=== PATIENT | female | born 1955 | race Caucasian/White ===

== ENCOUNTER 2017-05-08 21:48 | Outpatient (CLI) | payer MEDICARE, MEDICAID ==
--- NOTE | 2017-05-08 23:45 | Ultrasound Preliminary Report ---
Exam: US Duplex Ext Veins Left IMPRESSION: 1. Posterior tibial and peroneal veins not well seen. 2. No evidence for deep venous thrombosis. RADIA The call report notification system was initiated by Dr. Jackie Elena at 23:05 hrs on 05/08/17. The above findings were discussed with David by Dr. Jackie Elena at 23:44 hrs on 05/08/17. SITE ID: [id number]
--- NOTE | 2017-05-09 00:15 | Ultrasound Report ---
EXAM: LEFT LOWER EXTREMITY VENOUS ULTRASOUND EXAM DATE: 05/08/2017 10:33 PM. CLINICAL HISTORY: Leg joint pain. COMPARISON: None. TECHNIQUE: Real-time sonographic vascular imaging was performed by the web pressman through the lower extremity utilizing both color-flow and Doppler spectral analysis. Multiple independent sales representative static don ges were saved for review. FINDINGS: Common Femoral Vein (CFV): Normal. CFV-GSV Junction: Normal. Profunda Femoral Vein (PFV): Normal. Femoral Vein (FV) Prox: Normal. Femoral Vein (FV) Mid: Normal. Femoral Vein (FV) Dist: Normal. Popliteal Vein: Normal. Posterior Tibial Veins: Not well-seen. Peroneal Veins: Not well-seen. Contralateral Right CFV: Normal. Other: None. IMPRESSION: 1. Posterior tibial and peroneal veins not well-seen. 2. No evidence for deep venous thrombosis. RADIA The call report notification system was initiated by Dr. Jackie Elena at 23:05 hrs on 05/08/17. The above findings were discussed with David by Dr. Jackie Elena at 23:44 hrs on 05/08/17. Referring Provider Line: [phone] SITE ID: [id number]
== END 2017-05-08 21:49 | disposition home or self-care (01) ==
LOC: DI 21:48
PROVIDERS: ATTEND Physician Assistant
DX: M25.50 Pain in unspecified joint (principal)

== ENCOUNTER 2017-06-06 15:56 | Outpatient (CLI) | payer MEDICARE, MEDICAID ==
--- NOTE | 2017-06-07 12:24 | XRAY Report ---
THREE-VIEW LEFT KNEE: 06/06/2017 CLINICAL INDICATION: Pain. FINDINGS: AP, lateral, sunrise views of the left knee demonstrate stable appearance of knee replacem ent from postoperative films of 04/08/2013. There is no evidence of acute fracture or hardware compl ication. No effusion is present. IMPRESSION: STABLE APPEARANCE OF LEFT KNEE REPLACEMENT. JOB #: [id number] EXT JOB #:[id number]
== END 2017-06-06 15:57 | disposition home or self-care (01) ==
LOC: DI.N 15:56
PROVIDERS: ATTEND Family Medicine
DX: M25.562 Pain in left knee (principal); Z96.652 Presence of left artificial knee joint

== ENCOUNTER 2018-02-01 13:32 | Outpatient (CLI) | payer MEDICARE, MEDICAID ==
--- NOTE | 2018-02-01 16:21 | XRAY Report ---
THREE VIEW LUMBAR SPINE: 02/01/2018 CLINICAL INDICATION: Pain. FINDINGS: AP, lateral, coned down views of the lumbar spine demonstrate moderate to severe degenerative disk and facet disease. There is no evidence of compression fracture or subluxation. Mild levoscoliosis is noted. IMPRESSION: MODERATE TO SEVERE DEGENERATIVE DISK AND FACET DISEASE. TD: 02/01/2018 16:21
--- NOTE | 2018-02-01 16:22 | XRAY Report ---
LEFT HIP AND PELVIS: 02/01/2018 CLINICAL INDICATION: Pain. FINDINGS: Frontal view of the hips and pelvis and frogleg lateral view of the left hip demonstrate no evidence of fracture or dislocation. Mild osteoarthritis is present. No foreign body is seen in the soft tissues. IMPRESSION: MILD OSTEOARTHRITIS. TD: 02/01/2018 16:22
== END 2018-02-01 13:33 | disposition home or self-care (01) ==
LOC: DI.N 13:32
PROVIDERS: ATTEND Family Medicine
DX: M51.36 Other intervertebral disc degeneration, lumbar region (principal); M47.896 Other spondylosis, lumbar region; M16.12 Unilateral primary osteoarthritis, left hip
CPT/HCPCS: 72100

== ENCOUNTER 2018-04-22 15:26 | Outpatient (CLI) | payer MEDICARE, MEDICAID ==
--- NOTE | 2018-04-23 16:10 | XRAY Report ---
Procedure Date: 04/23/2018 Accession Number: [id number] / [id number] Procedure: XRN - Sacrum/Coccyx CPT Code: FULL RESULT: EXAM: SACRUM AND COCCYX RADIOGRAPHY 3 VIEWS EXAM DATE: 04/22/2018. HISTORY: Coccygeal pain. COMPARISONS: Abdomen and pelvis CT done 07/15/2014 and includes the sacrum and coccyx.. TECHNIQUE: AP, angulated AP and lateral views. FINDINGS: Alignment: The coccyx is tilted anterior in relationship to the distal sacrum, unchanged from the prior examination and most likely a normal variant. Bones: Normal. No fracture or bone lesion. Joints: The sacroiliac joints appear normal. Marked L5-S1 disk narrowing and small osteophytes is unchanged. Soft Tissues: Normal. IMPRESSION: Normal examination of the sacrum and coccyx. Severe L5-S1 degenerative disk disease and spondylosis. No change from 07/15/2014. RADIA
== END 2018-04-22 15:27 | disposition home or self-care (01) ==
LOC: DI.N 15:26
PROVIDERS: ATTEND Family Medicine
DX: M51.37 Other intervertebral disc degeneration, lumbosacral region (principal); M47.897 Other spondylosis, lumbosacral region
CPT/HCPCS: 72220

== ENCOUNTER 2018-06-11 08:00 | Outpatient (CLI) | payer MEDICARE, MEDICAID ==
[2018-06-11 12:40] LABS: BASOPHILS # (AUTO) 0.1 10^3/uL (0.0-0.1); BASOPHILS % (AUTO) 0.9 %; EOSINOPHILS # (AUTO) 0.1 10^3/uL (0.0-0.7); EOSINOPHILS % (AUTO) 1.8 %; HGB - HEMOGLOBIN 15.1 g/dL (12.0-16.0); LYMPHOCYTES # (AUTO) 1.2 10^3/uL (1.5-3.5); LYMPHOCYTES % (AUTO) 19.2 %; MEAN CORPUSCULAR HEMOGLOBIN 33.3 pg (27.0-31.0); MEAN CORPUSCULAR VOLUME 97.9 fL (81.0-99.0); MEAN PLATELET VOLUME 10.6 fL (7.9-10.8); MONOCYTES # (AUTO) 0.3 10^3/uL (0.0-1.0); MONOCYTES % (AUTO) 4.7 %; NEUTROPHILS # (AUTO) 4.4 10^3/uL (1.5-6.6); NEUTROPHILS % (AUTO) 73.4 %; PLT - PLATELET COUNT 93 10^3/uL (130-450); RED BLOOD COUNT 4.52 10^6/uL (4.20-5.40); RED CELL DISTRIBUTION WIDTH 13.8 % (12.0-15.0); WHITE BLOOD COUNT 6.1 x10^3/uL (4.8-10.8)
[2018-06-11 13:08] LABS: ALBUMIN 3.9 g/dL (3.2-5.5); ALBUMIN/GLOBULIN RATIO 1.1 (1.0-2.2); ALKALINE PHOSPHATASE 84 IU/L (42-121); ALT ALANINE AMINOTRANSFERASE 18 IU/L (10-60); AST ASPARTATE AMINOTRANSFERASE 28 IU/L (10-42); BILIRUBIN,TOTAL 1.2 mg/dL (0.2-1.0); BUN - BLOOD UREA NITROGEN 8 mg/dL (6-20); CALCIUM 9.4 mg/dL (8.5-10.3); CARBON DIOXIDE - CO2 23 mmol/L (21-32); CHLORIDE 103 mmol/L (101-111); CHOL/HDL RATIO 5.4 (<4.4); CHOLESTEROL 316 mg/dL; CREATININE 0.8 mg/dL (0.4-1.0); GFR - MDRD 72 (>89); GLUCOSE 123 mg/dL (70-100); HDL CHOLESTEROL 59 mg/dL; LDL CHOLESTEROL,CALCULATED 235 mg/dL; SODIUM 135 mmol/L (135-145); TOTAL PROTEIN 7.4 g/dL (6.7-8.2); VLDL CHOLESTEROL 22 mg/dL
== END 2018-06-11 08:01 | disposition home or self-care (01) ==
LOC: LAB.N 08:00
PROVIDERS: ATTEND Family Medicine
DX: E66.9 Obesity, unspecified (principal); E78.5 Hyperlipidemia, unspecified; E55.9 Vitamin D deficiency, unspecified; G62.9 Polyneuropathy, unspecified
CPT/HCPCS: 36415; 80053; 80061; 82306; 83721; 84443; 85025

== ENCOUNTER 2019-06-24 13:14 | Outpatient (CLI) | payer MEDICARE, MEDICAID ==
--- NOTE | 2019-06-24 16:09 | Mammography Report ---
Reason: screening R Procedure Date: 06/24/2019 Accession Number: [id number] / [id number] Procedure: MGN - Screening Mammo Dig RT CPT Code: FULL RESULT: EXAM: Screening Mammo Dig RT DATE: 06/24/2019 1:54 PM CLINICAL HISTORY: Screening encounter. Personal history of breast cancer status post left mastectomy in 2003 and personal history of breast reduction bilaterally. TECHNIQUE: (R) - Right CC, laterally exaggerated CC, MLO views were obtained. COMPARISON: 09/30/2015 through 07/13/2011. PARENCHYMAL PATTERN: (F) - The breast(s) demonstrate(s) diffuse fatty replacement. FINDINGS: There are no suspicious masses, calcifications, or areas of distortion. IMPRESSION: Negative examination. BI-RADS category 1. RECOMMENDATION: (ANNUAL) - Recommend routine annual screening mammography. BI-RADS CATEGORY: (1) - Negative. STANDARD QUALIFYING STATEMENTS: 1. This examination was not reviewed with the aid of Computer-Aided Detection (CAD). 2. A negative or benign imaging report should not preclude biopsy if clinically suspicious findings are present. 3. Dense breasts may obscure an underlying neoplasm. 4. This examination was reviewed without the aid of 3D breast imaging (tomosynthesis).
== END 2019-06-24 13:15 | disposition home or self-care (01) ==
LOC: DI.N 13:14
PROVIDERS: ATTEND Nurse Practitioner Family
DX: Z12.31 Encounter for screening mammogram for malignant neoplasm of breast (principal); Z85.3 Personal history of malignant neoplasm of breast

== ENCOUNTER 2019-08-13 15:06 | Outpatient (CLI) | payer MEDICARE, MEDICAID ==
--- NOTE | 2019-08-14 08:47 | Ultrasound Report ---
Reason: ABN VAGINAL BLEEDING IN POSTMENOPAUSAL Procedure Date: 08/13/2019 Accession Number: [id number] / [id number] Procedure: US - Pelvic w/Transvaginal CPT Code: FULL RESULT: EXAM: PELVIC ULTRASOUND EXAM DATE: 08/13/2019 03:40 PM. CLINICAL HISTORY: Abnormal vaginal bleeding in postmenopausal female. COMPARISON: PELVIC W/TRANSVAGINAL 05/18/2016 3:24 PM. TECHNIQUE: Realtime transabdominal pelvic scan performed to identify the uterus and adnexa and as an overview of other pelvic structures, followed by transvaginal scan to provide greater detail of the uterus and adnexa, with static image documentation. FINDINGS: Uterus: 8.5 x 4.4 x 4.6 cm, volume 89.2 cc. Anteverted position. Unremarkable allowing for body habitus. Masses: None. Endometrium: 11 mm. Heterogeneous with increased vascularity. No definite mucosal-based mass. Cervix: Unremarkable. Right Ovary: 1.9 x 1.2 x 1.8 cm, volume 2.2 cc. Normal echotexture and blood flow. Left Ovary: 1.7 x 1.1 x 1.0 cm, volume 1.0 cc. Normal echotexture and blood flow. Free Fluid: None. Other: None. IMPRESSION: 1. Abnormal endometrial thickness of 11 mm in a postmenopausal female. Consider gynecologic consultation. No definite endometrial mass. 2. Otherwise negative examination. RADIA
== END 2019-08-13 15:07 | disposition home or self-care (01) ==
LOC: DI 15:06
PROVIDERS: ATTEND Nurse Practitioner Family
DX: N95.0 Postmenopausal bleeding (principal); R93.89 Abnormal findings on diagnostic imaging of other specified body structures
CPT/HCPCS: 76830; 76856

== ENCOUNTER 2019-09-24 12:33 | Outpatient (CLI) | payer MEDICARE | END 2019-09-24 12:34 | disposition home or self-care (01) | LOC: RT 12:33 | PROVIDERS: ATTEND Obstetrics & Gynecology | DX: Z01.810 Encounter for preprocedural cardiovascular examination (principal); N85.02 Endometrial intraepithelial neoplasia [EIN] | CPT/HCPCS: 93005 ==

== ENCOUNTER 2019-10-10 12:23 | Outpatient (CLI) | payer MEDICARE, MEDICAID ==
--- NOTE | 2019-10-10 14:18 | Ultrasound Report ---
Reason: HX OF SPENOMEGALY Procedure Date: 10/10/2019 Accession Number: [id number] / [id number] Procedure: US - Abdomen Limited CPT Code: Final Report FULL RESULT: EXAM: ABDOMEN ULTRASOUND LIMITED, LUQ EXAM DATE: 10/10/2019 01:03 PM. CLINICAL HISTORY: HX OF SPLENOMEGALY. COMPARISON: ABDOMEN/PELVIS W/ 07/15/2014 3:08 PM ABDOMEN 04/01/2015 8:29 AM. TECHNIQUE: Real-time scanning was performed with static images obtained. FINDINGS: Spleen: 15.3 x 4.4 x 13.9 cm (489 cc). There is a nonspecific echogenic focus measuring 4 x 3 x 5 mm. Other: None. IMPRESSION: 1. Nonspecific moderate splenomegaly. 2. Small nonspecific echogenic splenic focus, possibly calcification. RADIA
== END 2019-10-10 12:24 | disposition home or self-care (01) ==
LOC: DI 12:23
PROVIDERS: ATTEND Obstetrics & Gynecology
DX: R16.1 Splenomegaly, not elsewhere classified (principal)
CPT/HCPCS: 76705

== ENCOUNTER 2020-09-09 12:54 | Outpatient (CLI) | payer MEDICARE ==
--- NOTE | 2020-09-09 14:50 | XRAY Report ---
PROCEDURE: Hip w/Pelvis 2-3V LT INDICATIONS: LEFT LOWER LEG HIP PAIN TECHNIQUE: AP pelvis with lateral view(s) of the left hip(s). COMPARISON: 02/01/2018. FINDINGS: Bones: No fractures or dislocations. Mild degenerative changes of the left hip. Lower lumbar spondyl osis and degenerative changes of the sacroiliac joints. Pelvic ring appears intact. No suspicious [place] lesions. Soft tissues: The visualized bowel gas pattern is normal. No suspicious soft tissue calcifications. IMPRESSION: Left hip without acute osseous abnormalities. Degenerative changes of the left hip and lower lumbar s pine. Reviewed by: Mark Ibrahim MD on 09/09/2020 2:48 PM PDT Approved by: Mark Ibrahim MD on 09/09/2020 2:48 PM PDT Station ID: [id number]
== END 2020-09-09 12:55 | disposition home or self-care (01) ==
LOC: DI 12:54
PROVIDERS: ATTEND Physician Assistant
DX: M16.12 Unilateral primary osteoarthritis, left hip (principal); M47.816 Spondylosis without myelopathy or radiculopathy, lumbar region; M79.662 Pain in left lower leg; M79.652 Pain in left thigh

== ENCOUNTER 2020-11-23 15:26 | Outpatient (CLI) | payer MEDICARE ==
[2020-11-23 16:25] VITALS: BP 127/69
--- NOTE | 2020-11-23 16:25 | SLEEP CARE CONSULTATION ---
Information from patient questionnaire entered by Janey Johnson. I have reviewed and concur with the information entered by Janey Johnson. This document represents the service I personally performed and the decisions made by me, Marina Fraser ARNP. History of Present Illness Service Date and Time: 11/23/2020 1526 Reason for Visit: New patient Chief Complaint: reports: Unrefreshed sleep, Snoring, Excessive daytime sleepiness, Fatigue, Frequent awakenings at night, Other (sleep problems). denies: Observed pauses in breathing Date of Onset: 5 years or no Usual bedtime: 9-10 PM Time it takes to fall asleep: 1/2 hr Snores at night: Yes (Don't know, I have been told yes) Observed to quit breathing while asleep: No Sleeps alone due to snoring: No Number of times waking at night: 4-5 x Reasons for waking at night: reports: Bathroom, Other (Thinking too much). denies: Choking, Snoring, Gasping for air Toss, Turn, or Twitch while sleeping: Yes Recalls having dreams: No Usually gets out of bed at: 7-8 AM Feels refreshed in the morning: No Morning headache: No Sleepy or fatigued during the day: Yes Ever fallen asleep while driving: No (she doesn't drive) Takes day naps: No Dreams during day naps: No Prior sleep studies: No Additional HPI information: I had the pleasure of seeing JI DELGADO today regarding the possibility of her having a sleep disorder. Her current complaints are sleep problems. She states she is an over-thinker and cannot turn it off to go to sleep. She has pain at night. She also has a lot of interrupted sleep a lot. She goes to the bathroom but there is little out. She then has a hard time going back to sleep. She has tried melatonin and meloxicam with no improvement. She also tried doxepine but this did not help her sleep. - Parasomnia Symptoms Ever been unable to move upon waking from sleep: No Walks in sleep: No Talks in sleep: Yes (maybe) Ever acted out dreams in sleep: No Ever felt weak in the knees when startled or emotional: No Bothered by creepy, crawly, restless sensations in legs: No Problems with memory or concentration: Yes (both) Subjective Initial [place] Sleepiness Scale score: 4 (in 2020) Past Medical History Past Medical History: reports: Arthritis, Fibromyalgia, Anxiety, Depression, Emphysema, Mood disorder (general mood disorder). 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 Patient is Single and lives in [place]. Have you smoked in the past 12 months: Yes (1 cigarette daily with her coffee) Years of smokin Alcohol use: Yes Alcohol amount and frequency: once in a while, socially Caffeine use: Yes Caffeine amount and frequency: 1 cup coffee in the AM Family History Family history of sleep disordered breathing: No Allergies and Home Medications Drug allergies reviewed: Yes (penicillins) Home medication list reviewed: Yes Allergy and home medication list: Doxepin 10 mg meloxicam 10 mg Review of Systems Weight gain over past 5 years: 20 Cardiovascular: reports: leg or foot swelling. denies: high blood pressure Neurological: reports: gait or balance problems Psychiatric: reports: anxiety Ear/Nose/Throat: reports: dry mouth/throat (due to the medication she takes), wisdom teeth removed (has dentures). denies: nasal congestion, tonsillectomy Endocrine: reports: sluggishness (tired), too hot or cold Musculoskeletal: reports: joint pain, joint swelling, muscle pain or cramping, mobility problems Physical Exam Blood Pressure: 127/69 Cuff size: wrist Heart Rate: 79 O2 Saturation: 97 Height: 5 ft 2 in Weight: 212 lb Body Mass Index: 38.7 BMI Classification: Obese Neck circumference: 14 (inches) Nostrils: patent to airflow Turbinates: normal Mouth and throat: narrow oropharynx Soft palate: normal Hard palate: normal Uvula visualization: 25% Mallampati Class III Tongue: normal in size Tonsils: 1+ Chin and jaw: normal size and position Neck: normal w/o lymphadenopathy or thyromegaly Heart: regular rate and rhythm Lungs: clear bilaterally Impression and Plan 1. Suspected Obstructive Sleep Apnea-Hypopnea Syndrome, as suggested by a history of loud and irregular snoring, frequent awakening during the night, unrefreshed sleep, cognitive impairment, and excessive daytime sleepiness. I reviewed with the patient that a narrow oropharynx and obesity are common predisposing factors for obstructive sleep apnea-hypopnea syndrome. I recommend proceeding to polysomnography to confirm the diagnosis and to assess severity. If the patient has significant sleep disordered breathing, a manual CPAP titration study will also be performed to find the optimal treatment pressure. I informed the patient of what the sleep studies involve and after some discussion, obtained agreement to proceed. The pathophysiology of obstructive sleep apnea-hypopnea syndrome was discussed with the patient and health risks of cardiovascular and cerebrovascular disease if not treated. [facility] brochure for obstructive sleep apnea-hypopnea syndrome given and reviewed. Risks of drowsy driving discussed in detail and patient advised to avoid long distance driving and to taffy puller at the first sign of drowsiness. Patient concerned that she will not be able to sleep for the study. I offered a one time dose of Ambien 5 mg for that night and patient would like to have that for the sleep study night. Patient agreed to plan. * Schedule polysomnography +- manual CPAP titration study and return in 1-2 weeks after the study to discuss result and initiate therapy. * 5 mg Ambien for sleep study night, prescription given to patient. * Avoid long distance driving or driving when feeling sleepy. * Avoid alcohol, sedative and muscle relaxant around bedtime. * Review instructions provided by trained office staff on how to prepare for the sleep study. * Return for follow-up after sleep study completed. Visit Type: In Office Time Spent with Patient (minutes): 30 Provider Statement: I spent 100% of the Face to Face Visit with the patient with greater than 50% spent counseling the patient and coordination of care.
== END 2020-11-23 15:27 | disposition home or self-care (01) ==
LOC: SC 15:26
PROVIDERS: ATTEND Nurse Practitioner Family
DX: G47.10 Hypersomnia, unspecified (principal); R41.89 Other symptoms and signs involving cognitive functions and awareness; G47.8 Other sleep disorders; R06.83 Snoring; E66.9 Obesity, unspecified; Z68.38 Body mass index [BMI] 38.0-38.9, adult
CPT/HCPCS: 99203; G0463; 99212

== ENCOUNTER 2021-01-23 19:36 | Outpatient (CLI) | payer MEDICARE, MEDICAID | END 2021-01-23 19:37 | disposition home or self-care (01) | LOC: SC 19:36 | PROVIDERS: ATTEND Nurse Practitioner Family | DX: G47.33 Obstructive sleep apnea (adult) (pediatric) (principal); E66.3 Overweight; Z68.38 Body mass index [BMI] 38.0-38.9, adult | CPT/HCPCS: 95810 ==

== ENCOUNTER 2021-02-01 12:56 | Outpatient (CLI) | payer MEDICARE, MEDICAID ==
--- NOTE | 2021-02-01 13:32 | SLEEP CARE CONSULTATION ---
Information from patient questionnaire entered by Janey Johnson. I have reviewed and concur with the information entered by Janey Johnson. This document represents the service I personally performed and the decisions made by me, Marina Fraser ARNP. History of Present Illness Service Date and Time: 02/01/2021 1256 Initial [place] Sleepiness Scale score: 4 (in 2020) Current [place] Sleepiness Scale score: 2 Additional HPI information: JI DELGADO returns for follow up with her significant other and results of the recently performed polysomnography. She was found to have mild obstructive sleep apnea with an average AHI of 11.4 and socrates oxygen saturation of 82%. I explained the pathophysiology behind obstructive sleep apnea. We then spent quite a bit of time discussing different treatment options. For mild obstructive sleep apnea, surgery and oral appliance are alternatives to nasal CPAP therapy but in moderate or severe cases, nasal CPAP is the most effective and reliable treatment. Because apnea is primarily in supine position, then positional management therapy could be effective. Methods discussed such as positioning with pillows, using a T-shirt with tennis balls in the back, and shown commercial products that have a pillow format on back to prevent supine sleep. I reviewed the impact of weight changes on sleep apnea and strongly recommended losing weight. After some discussion, the patient opted to go with the nasal CPAP therapy. Nasal autoCPAP set at 4-15 cmH20 will be ordered with rationale explained. A manual titration study will be ordered if unable to find optimal pressure with office adjustments. I explained how CPAP machine works with sample devices Respironics Dreamstation and ResWicked Loot [id number] and what to expect when using the machine. Using CPAP every night in order to get used to it was emphasized. Patient advised to put CPAP mask on before getting into bed so as not to fall asleep without CPAP. To assist acclimation to CPAP use, it could also be used for a short time during day while reading or watching TV. The patient was instructed to call the CPAP supplier to discuss any mechanical problem that may occur. If the mask given is uncomfortable or is difficult to keep on through the night even with adjustment, contact the CPAP supplier as many will replace with another mask style if notified before 30 days. If snoring or perceives is not getting enough air or too much air from the machine, notify this office. [facility] patient education PAP tips and Non Pap treatment pamphlets reviewed and given to patient. Patient counseled not drink alcohol less than 4 hours before bedtime as it can increase snoring and apnea. Patient was cautioned about risks of drowsy driving until sleepiness symptoms resolve. Sleep Study - Results Type of Sleep Study: Polysomnography Prior sleep studies: No Polysomnography/Home Sleep Study results: IMPRESSION: The quality of the study is good. The patient had reduced sleep efficiency due to sleep onset insomnia and production tech awakening. The sleep architecture was otherwise normal. Respiratory monitoring showed mild obstructive sleep apnea-hypopnea (AHI = 11.4) associated with oxyhemoglobin desaturation and mild hypoxia (socrates oxygen saturation of 82%) but not sleep fragmentation. The respiratory events occurred mainly during REM sleep (supine AHI = 22.5; non-supine = 7.10). Snore was light to loud in intensity. There was no significant periodic leg movement of sleep. Cardiac rhythm was normal sinus rhythm without significant arrhythmia. No abnormal behavior (parasomnia) observed during the night. Allergies and Home Medications Home medication list reviewed: Yes (no changes) Review of Systems Review of systems same as previous: Yes (no changes) Physical Exam Heart Rate: 80 O2 Saturation: 98 Height: 5 ft 2 in Weight: 211 lb Body Mass Index: 38.5 BMI Classification: Obese Impression and Plan 1. Obstructive Sleep Apnea-Hypopnea Syndrome, mild, with lowest oxygen saturation of 82%. Obviously this is the cause of the patients symptoms of unrefreshed sleep, and excessive daytime sleepiness. Positive pressure therapy could benefit depression, anxiety, mood disorder and fibromyalgia. As mentioned above, the patient will be started on nasal autoCPAP therapy with pressure set at 4-15 cmH2O. A manual titration study will be completed if unable to find optimal treatment pressure with office adjustments. Compliance guidelines also reviewed. A copy of compliance guidelines will be given for reference at check out. Because the apnea is more severe supine, I instructed to avoid sleeping supine using pillow positioning until able to start CPAP use. * Nasal auto CPAP therapy, pressure at 4-15 cm H2O. * Attempt to lose weight. * Avoid alcohol consumption near bedtime. * Avoid supine sleep until using CPAP. * The patient is again cautioned about driving until sleepiness completely resolves. * Return one month after CPAP obtained. I will assess response to therapy and compliance at that time. Counseling Topics: Weight loss health impact Visit Type: In Office Time Spent with Patient (minutes): 22 Provider Statement: I spent 100% of the Face to Face Visit with the patient with greater than 50% spent counseling the patient and coordination of care.
== END 2021-02-01 12:57 | disposition home or self-care (01) ==
LOC: SC 12:56
PROVIDERS: ATTEND Nurse Practitioner Family
DX: G47.33 Obstructive sleep apnea (adult) (pediatric) (principal); E66.9 Obesity, unspecified; Z68.38 Body mass index [BMI] 38.0-38.9, adult
CPT/HCPCS: 99213; G0463; 99212

== ENCOUNTER 2021-10-28 12:59 | Outpatient (CLI) | payer MEDICARE, OTHER, MEDICAID ==
--- NOTE | 2021-10-31 13:42 | Mammography Report ---
UNILATERAL RIGHT DIGITAL SCREENING MAMMOGRAM 3D/2D: 10/28/2021 CLINICAL: Routine screening. Personal history of left breast cancer. Comparison is made to exams dated: 06/24/2019 mammogram, 09/30/2015 mammogram, 07/13/2011 ultrasound, a nd 07/13/2011 mammogram - [facility]. The tissue of right breast is predominantly fa tty. No significant masses, calcifications, or other findings are seen in the breast. There has been no significant interval change. IMPRESSION: NEGATIVE There is no mammographic evidence of malignancy. A 1 year screening mammogram is recommended. This exam was interpreted at Station ID: [id number]. NOTE: For mammograms, a report in lay terms will be sent to the patient. Approximately 15% of breast malignancies will not be visualized mammographically. In the management of a palpable breast mass, a negative mammogram must not discourage biopsy of a clinically suspicious lesion. Electronically Signed By: Mark Ibrahim M.D. aty/penrad:10/28/2021 14:15:08 ACR BI-RADS Category 1: Negative 3341F PARENCHYMAL PATTERN: (F) - The breast(s) demonstrate(s) diffuse fatty replacement. BI-RADS CATEGORY: (1) - 1 RECOMMENDATION: (ANNUAL) - Recommend routine annual screening mammography. [id number] 1 year screening LATERALITY: (B)
== END 2021-10-28 13:00 | disposition home or self-care (01) ==
LOC: DI 12:59
PROVIDERS: ATTEND Obstetrics & Gynecology
DX: Z12.31 Encounter for screening mammogram for malignant neoplasm of breast (principal); Z00.00 Encounter for general adult medical examination without abnormal findings; Z85.3 Personal history of malignant neoplasm of breast

== ENCOUNTER 2021-10-28 13:02 | Outpatient (CLI) | payer MEDICARE, OTHER, MEDICAID ==
--- NOTE | 2021-10-28 17:21 | DEXA Report ---
PROCEDURE: Dexa Spine and/or Hip INDICATIONS: POSTMENOPAUSAL TECHNIQUE: Dual energy x-ray absorptiometry (DXA) was performed on a [employer] System. Regions measur ed are the AP Spine, femoral neck, and if needed forearm. COMPARISON: None. FINDINGS: Lumbar Spine: Bone Mineral Density 1.146 g/cm/cm,T score -0.3. Left Hip: Bone Mineral Density 0.887 g/cm/cm,T score -1.0. Left Femoral Neck: Bone Mineral Density 0.819 g/cm/cm, T score -1.6. (T score greater or equal to -1.0: NORMAL) (T score from -1.1 to -2.4: OSTEOPENIA) (T score less than or equal to -2.5 to: OSTEOPOROSIS) Impression: Osteopenia. Patients with diagnosis of osteoporosis or osteopenia should have regular bone mineral density assess ment. For those eligible for Medicare, routine testing is allowed once every 2 years. Testing frequ ency can be increased for patients who have rapidly progressing disease or for those who are receivin g medical therapy to restore bone mass. Reviewed by: Kael Squires MD on 10/28/2021 5:20 PM PST Approved by: Kael Squires MD on 10/28/2021 5:20 PM PST Station ID: [id number]
== END 2021-10-28 13:03 | disposition home or self-care (01) ==
LOC: DI 13:02
PROVIDERS: ATTEND Obstetrics & Gynecology
DX: Z13.820 Encounter for screening for osteoporosis (principal); Z78.0 Asymptomatic menopausal state; M85.89 Other specified disorders of bone density and structure, multiple sites

== ENCOUNTER 2022-03-25 10:16 | Outpatient (CLI) | payer MEDICARE, MEDICAID ==
[2022-03-25 14:36] LABS: BASOPHILS % (AUTO) 0.2 %; EOSINOPHILS # (AUTO) 0.1 10^3/uL (0.0-0.7); EOSINOPHILS % (AUTO) 2.3 %; HCT - HEMATOCRIT 41.2 % (37.0-47.0); HGB - HEMOGLOBIN 14.3 g/dL (12.0-16.0); LYMPHOCYTES % (AUTO) 19.6 %; MEAN CORPUSCULAR HEMOGLOBIN 32.4 pg (27.0-31.0); MEAN CORPUSCULAR HGB CONC 34.7 g/dL (32.0-36.0); MEAN CORPUSCULAR VOLUME 93.2 fL (81.0-99.0); MEAN PLATELET VOLUME 13.4 fL (7.9-10.8); MONOCYTES # (AUTO) 0.3 10^3/uL (0.0-1.0); MONOCYTES % (AUTO) 5.1 %; NEUTROPHILS # (AUTO) 3.9 10^3/uL (1.5-6.6); NEUTROPHILS % (AUTO) 72.6 %; PLT - PLATELET COUNT 71 10^3/uL (130-450); RED BLOOD COUNT 4.42 10^6/uL (4.20-5.40); RED CELL DISTRIBUTION WIDTH 12.5 % (12.0-15.0); WHITE BLOOD COUNT 5.3 x10^3/uL (4.8-10.8)
[2022-03-25 15:04] LABS: BUN - BLOOD UREA NITROGEN 13 mg/dL (6-20); CARBON DIOXIDE - CO2 23 mmol/L (21-32); CHLORIDE 105 mmol/L (101-111); CREATININE 0.8 mg/dL (0.4-1.0); POTASSIUM 4.3 mmol/L (3.5-5.0); SODIUM 138 mmol/L (135-145)
[2022-03-25 15:05] LABS: ALBUMIN/GLOBULIN RATIO 1.1 (1.0-2.2); ALKALINE PHOSPHATASE 99 IU/L (42-121); ALT ALANINE AMINOTRANSFERASE 25 IU/L (10-60); AST ASPARTATE AMINOTRANSFERASE 34 IU/L (10-42); BILIRUBIN,TOTAL 1.1 mg/dL (0.2-1.0); CALCIUM 9.6 mg/dL (8.5-10.3); CHOL/HDL RATIO 3.2 (<4.4); CHOLESTEROL 216 mg/dL; GFR - MDRD 72 (>89); GLUCOSE 118 mg/dL (70-100); HDL CHOLESTEROL 68 mg/dL; LDL CHOLESTEROL,CALCULATED 130 mg/dL; LDL/HDL RATIO 1.9 (<4.4); TOTAL PROTEIN 7.6 g/dL (6.7-8.2); TRIGLYCERIDES 91 mg/dL; VLDL CHOLESTEROL 18 mg/dL
[2022-03-25 15:17] LABS: THYROID STIMULATING HORMONE 2.14 uIU/mL (0.34-5.60)
[2022-03-25 15:19] LABS: FREE T4 (FREE THYROXINE) 0.83 ng/dL (0.58-1.64)
[2022-03-25 20:31] LABS: ESTIMATED AVERAGE GLUCOSE 123 mg/dL (70-100); HEMOGLOBIN A1c% 5.9 % (4.27-6.07)
== END 2022-03-25 10:17 | disposition home or self-care (01) ==
LOC: LAB.N 10:16
PROVIDERS: ATTEND Obstetrics & Gynecology
DX: Z00.00 Encounter for general adult medical examination without abnormal findings (principal); Z13.1 Encounter for screening for diabetes mellitus; K76.0 Fatty (change of) liver, not elsewhere classified; B19.20 Unspecified viral hepatitis C without hepatic coma; E66.9 Obesity, unspecified; Z13.220 Encounter for screening for lipoid disorders; Z13.21 Encounter for screening for nutritional disorder; D64.9 Anemia, unspecified
CPT/HCPCS: 36415; 80053; 80061; 82306; 83036; 83721; 84439; 84443; 85025

== ENCOUNTER 2022-03-29 10:19 | Outpatient (CLI) | payer MEDICARE, MEDICAID | END 2022-03-29 10:20 | disposition home or self-care (01) | LOC: LAB 10:19 | PROVIDERS: ATTEND Obstetrics & Gynecology | DX: Z00.00 Encounter for general adult medical examination without abnormal findings (principal); Z13.1 Encounter for screening for diabetes mellitus; Z53.9 Procedure and treatment not carried out, unspecified reason | CPT/HCPCS: 82951 ==

== ENCOUNTER 2022-07-10 08:00 | Outpatient (CLI) | payer MEDICARE, MEDICAID ==
--- NOTE | 2022-07-10 17:08 | XRAY Report ---
PROCEDURE: Knee 4 View LT INDICATIONS: LEFT KNEE PAIN TECHNIQUE: 3 views of the left knee and 1 view of the right knee COMPARISON: None. FINDINGS: Bones: Knee arthroplasty is grossly intact. There is moderate right medial femorotibial compartment narrowing. Soft tissues: No joint effusion. No suspicious soft tissue calcifications. IMPRESSION: Expected appearance of the left knee arthroplasty. Mild right knee osteoarthritis. Reviewed by: Ashley White MD on 07/10/2022 5:07 PM PDT Approved by: Ashley White MD on 07/10/2022 5:07 PM PDT Station ID: [id number]
== END 2022-07-10 23:59 | disposition home or self-care (01) ==
LOC: DI.WOS 08:00
PROVIDERS: ATTEND Physician Assistant
DX: M25.562 Pain in left knee (principal); Z96.652 Presence of left artificial knee joint

== ENCOUNTER 2022-09-14 06:19 | Day surgery (SDC) | payer MEDICARE, MEDICAID ==
[~2022-09-14 06:19] MED LIST: CYCLOPENTOLATE 1% OPHTH DROPS 2 ML ONE; KETOROLAC 0.45% OPHTH DROPS ONE; PHENYLEPHRINE 2.5% OPHTH 2 ML DROPS ONE; PROPARACAINE 0.5% OPHTH DROPS 15 ML ONE
[2022-09-14] MEDS ORDERED: LACTATED RINGERS 1,000 ML IV ONE (06:35)
[2022-09-14] MEDS ORDERED: TRIAMCIN/MOXIFLOX OPHTHALMIC 0.6 ML VIAL IO ONE ×2 (06:53→08:03)
[2022-09-14] MEDS ORDERED: EPINEPHrine 1 MG/ML AMP ONE (06:53)
[2022-09-14] MEDS ORDERED: BRIMONIDINE 0.2% OPHTH DROPS 5 ML ONE (06:54)
[2022-09-14] MEDS ORDERED: VANCOMYCIN OPHTH (TOPICAL) 10 MG/ML SYRINGE ONE (06:54)
[2022-09-14] MEDS ORDERED: BSS/LIDOCAINE/EPINEPHRINE 1 ML VIAL ONE (06:54)
[2022-09-14] MEDS ORDERED: TIMOLOL 0.5% OPHTH DROPS ONE (06:54)
[2022-09-14] MEDS ORDERED: MIDAZOLAM 2 MG/2 ML VIAL ONE (07:37)
--- NOTE | 2022-09-14 07:51 | ANESTHESIA ---
Pre-Anesthesia VS, & Labs - Diagnosis L cataract - Procedure L PhacoIOL Vital Signs: Temp Pulse Resp BP Pulse Ox O2 Flow Rate 35.9 C L 91 18 145/87 H 99 0 09/14/22 06:36 09/14/22 06:36 09/14/22 06:36 09/14/22 06:36 09/14/22 06:36 09/14/22 06:36 Height: 5 ft 2 in Weight (kg): 91.8 kg Body Mass Index: 37.0 BMI Classification: Obese - NPO >8 hours - Is Patient ?: No - Lab Results Current Lab Results: Laboratory Tests 09/14/22 06:48: POC Whole Bld Glucose 140 H Home Medications and Allergies Home Medications: Ambulatory Orders Ascorbic Acid [Vitamin C] 500 mg PO DAILY 09/13/22 Meloxicam [Mobic] 15 mg PO DAILY 09/13/22 Omeprazole Magnesium 20 mg PO DAILY 09/13/22 Rosuvastatin Calcium [Crestor] 10 mg PO HS 09/13/22 Trazodone HCl 100 mg PO HS 09/13/22 lisinopriL [Lisinopril] 10 mg PO DAILY 09/13/22 metFORMIN [Glucophage] 500 mg PO ONCE 09/13/22 Ascorbic Acid [Vitamin C] 500 mg PO DAILY 09/13/22 Meloxicam [Mobic] 15 mg PO DAILY 09/13/22 Omeprazole Magnesium 20 mg PO DAILY 09/13/22 Rosuvastatin Calcium [Crestor] 10 mg PO HS 09/13/22 Trazodone HCl 100 mg PO HS 09/13/22 lisinopriL [Lisinopril] 10 mg PO DAILY 09/13/22 metFORMIN [Glucophage] 500 mg PO ONCE 09/13/22 Allergies/Adverse Reactions: Allergies Allergy/AdvReac Type Severity Reaction Status Date / Time Penicillins Allergy Severe Edema Verified 09/14/22 06:50 silk tape AdvReac Unknown Uncoded 09/14/22 06:50 Anes History & Medical History - Anesthetic History Anesthesia Complications: reports: No previous complications Family history of Anesthesia Complications: Denies Family history of Malignant Hyperthermia: Denies - Medical History Cardiovascular: reports: Hypertension, High cholesterol Pulmonary: reports: None Gastrointestinal: reports: GERD, Hiatal hernia, Hepatitis Urinary: reports: None Musculoskeletal: reports: Osteoarthritis, Fibromyalgia Endocrine/Autoimmune: reports: None Skin: reports: None Smoking Status: Current every day smoker - Surgical History General: reports: Colonoscopy Gynecologic: reports: Mastectomy Orthopedic: reports: Knee replacement, Carpal Tunnel surgery Exam General: Alert, Oriented x3, Cooperative Dental: WNL Mouth Openin Fingerbreadth Neck Mobility: Normal Mallampati classification: II Respiratory: Lungs clear Cardiovascular: Regular rate Plan Anesthesia Type: MAC Consent for Procedure(s) Verified and Reviewed: Yes Code Status: Attempt Resuscitation ASA classification: 2-Mild systemic disease Is this case an emergency?: No
[2022-09-14] MEDS ORDERED: BSS/LIDOCAINE/EPINEPHRINE 1 ML SYRINGE IO ONE (08:02)
[2022-09-14] MEDS ORDERED: EPINEPHrine 1 MG/ML AMP IR ONE (08:02)
[2022-09-14] MEDS ORDERED: BRIMONIDINE 0.2% OPHTH DROPS 5 ML OPTH ONE (08:02)
[2022-09-14] MEDS ORDERED: TIMOLOL 0.5% OPHTH DROPS OPTH ONE (08:02)
[2022-09-14] MEDS ORDERED: PROPARACAINE 0.5% OPHTH DROPS 15 ML LEFTEYE ONE (08:03)
[2022-09-14] MEDS ORDERED: VANCOMYCIN OPHTH (TOPICAL) 10 MG/ML SYRINGE TOP ONE (08:03)
--- NOTE | 2022-09-14 08:09 | OPERATIVE REPORT ---
Operative Report - Other Other Information/Narrative: Date of Surgery: 09/14/22 Preop Dx: Visually significant cataract left eye. This was the first cataract surgery. Postop Dx: Same Procedure: Phacoemulsification with posterior chamber intraocular lens implant left eye Surgeon: Dr. Yosvany Elena Anesthesia: Monitored anesthesia care Complications: None Operative Indications: This is a 67-year-old F with progressive vision loss in the left eye due to 2+ nuclear sclerotic and 1+ posterior subcapsular cataract. Best corrected visual acuity was 20/30 with glare to 20/250 vision in the left eye. Indications for surgery were: - Overall decrease in vision - Difficulty seeing words on a computer screen - Difficulty reading - Difficulty seeing words, closed captions, or game scores on TV - Difficulty with glare or bright lights in any situation The patient was consented at length concerning the risks and benefits of cataract surgery after which the patient expressed a desire to proceed with surgery. Operative Procedure: The patient was taken into OR#3 and placed under monitored anesthesia care. A surgical time-out was conducted confirming correct patient, correct procedure, and correct surgical site. The patient was given topical anesthesia and then prepped and draped in the usual sterile fashion. The eye was entered at the 6 and 3 oclock positions. Intracameral Shugarcaine was injected into the anterior chamber followed by a dispersive viscoelastic. A continuous-tear curvilinear capsulorhexis was performed. The nucleus was hydrodissected and phacoemulsified. The cortex was evacuated using automated infusion and aspiration. A cohesive viscoelastic was injected into the capsular bag and a 18.0 diopter intraocular lens was inserted into the bag. Infusion and aspiration were used to evacuate the viscoelastic materials from the eye. The wounds were hydrated and the eye inflated to physiologic pressure using balanced salt solution. Approximately 0.25ml of a mixture of triamcinolone and moxifloxacin was injected trans-sclerally into the vitreous in the inferotemporal quadrant using a 30 gauge cannula. An additional 0.55ml of a mixture of triamcinolone and moxifloxacin was injected subconjunctivally in the superior quadrant for infection and inflammation prophylaxis. Wound integrity was checked with Weck-Evelina sponges. The patient was taken from the operating room in good condition and given post-op instructions.
[2022-09-14 08:22] VITALS: BP 130/63
[2022-09-14] MEDS ORDERED: LACTATED RINGERS 500 ML IV ONE (08:27)
--- NOTE | 2022-09-14 08:34 | ANESTHESIA POST OP EVALUATION ---
Anesthesia Post Eval - Post Anesthesia Eval Vitals: Last Vital Signs Temp 36.1 C L 09/14/22 07:57 Pulse 79 09/14/22 08:21 Resp 15 09/14/22 08:21 BP 130/63 09/14/22 08:21 Pulse Ox 100 09/14/22 07:57 O2 Flow Rate 0 09/14/22 06:36 CV Function Including HR & BP: Stable Pain Control: Satisfactory Nausea & Vomiting: Negative Mental Status: Baseline Respiratory Status: Airway Patent Hydration Status: Satisfactory Anesthesia Complications: None
== END 2022-09-14 06:20 | disposition home or self-care (01) ==
LOC: SDS 06:19
PROVIDERS: ATTEND Ophthalmology
DX: E11.36 Type 2 diabetes mellitus with diabetic cataract (principal); H25.12 Age-related nuclear cataract, left eye; Z79.84 Long term (current) use of oral hypoglycemic drugs; E66.9 Obesity, unspecified; Z68.37 Body mass index [BMI] 37.0-37.9, adult; F17.200 Nicotine dependence, unspecified, uncomplicated
CPT/HCPCS: 66984; A9270; J3490; J7120

== ENCOUNTER 2022-09-30 11:35 | Outpatient (CLI) | payer MEDICARE, MEDICAID ==
[2022-09-30 19:34] LABS: ALBUMIN 3.9 g/dL (3.2-5.5); ALBUMIN/GLOBULIN RATIO 1.2 (1.0-2.2); BILIRUBIN,TOTAL 0.5 mg/dL (0.2-1.0); CALCIUM 9.3 mg/dL (8.5-10.3); CREATININE 0.7 mg/dL (0.4-1.0); TOTAL PROTEIN 7.2 g/dL (6.7-8.2)
[2022-10-02 07:58] LABS: ESTIMATED AVERAGE GLUCOSE 126 mg/dL (70-100)
[2022-10-04 17:08] LABS: HCV IU/ML HCV Not Detected IU/mL (.)
== END 2022-09-30 11:36 | disposition home or self-care (01) ==
LOC: LAB.N 11:35
PROVIDERS: ATTEND Family Medicine
DX: I10 Essential (primary) hypertension (principal); E11.9 Type 2 diabetes mellitus without complications; D69.6 Thrombocytopenia, unspecified; E55.9 Vitamin D deficiency, unspecified; F32.9 Major depressive disorder, single episode, unspecified; M79.7 Fibromyalgia; K76.0 Fatty (change of) liver, not elsewhere classified; B19.20 Unspecified viral hepatitis C without hepatic coma; E78.5 Hyperlipidemia, unspecified; Z96.652 Presence of left artificial knee joint
CPT/HCPCS: 36415; 80053; 83036; 87522

== ENCOUNTER 2022-10-19 06:37 | Day surgery (SDC) | payer MEDICARE, MEDICAID ==
--- NOTE | 2022-10-19 07:32 | ANESTHESIA ---
Pre-Anesthesia VS, & Labs - Diagnosis right eye nuclear cataract - Procedure cataract extraction with IOL implant right eye Vital Signs: Temp Pulse Resp BP Pulse Ox O2 Flow Rate 36.6 C 82 16 163/65 H 97 10/19/22 06:46 10/19/22 06:46 10/19/22 06:46 10/19/22 06:46 10/19/22 06:46 Height: 5 ft 2 in Weight (kg): 95 kg Body Mass Index: 38.2 BMI Classification: Obese - NPO Last Fluid Intake: 0300 apple juice - Is Patient ?: No - Lab Results Current Lab Results: Laboratory Tests 10/19/22 07:04: POC Whole Bld Glucose 139 H Home Medications and Allergies Ascorbic Acid [Vitamin C] 500 mg PO DAILY 09/13/22 Meloxicam [Mobic] 15 mg PO DAILY 09/13/22 Omeprazole Magnesium 20 mg PO DAILY 09/13/22 Rosuvastatin Calcium [Crestor] 10 mg PO HS 09/13/22 Trazodone HCl 100 mg PO HS 09/13/22 lisinopriL [Lisinopril] 10 mg PO DAILY 09/13/22 Allergies/Adverse Reactions: Allergies Allergy/AdvReac Type Severity Reaction Status Date / Time Penicillins Allergy Severe Edema Verified 09/14/22 06:50 silk tape AdvReac Unknown Uncoded 09/14/22 06:50 Anes History & Medical History - Anesthetic History Anesthesia Complications: reports: No previous complications - Medical History Cardiovascular: reports: Hypertension, High cholesterol Pulmonary: reports: None Gastrointestinal: reports: GERD, Hiatal hernia, Hepatitis Urinary: reports: None Neuro: reports: None Musculoskeletal: reports: Osteoarthritis, Fibromyalgia Endocrine/Autoimmune: reports: None, Other (pre-diabetic) Skin: reports: None Smoking Status: Current every day smoker Psychosocial: reports: No issues indicated, Cannabis (edibles at night) History of Cancer?: Yes (mastectomy) - Surgical History General: reports: Colonoscopy Eyes Ears Nose Throat (EENT): reports: Cataracts Gynecologic: reports: Mastectomy Orthopedic: reports: Knee replacement, Carpal Tunnel surgery Exam General: Alert, Oriented x3, Cooperative, No acute distress Dental: Dentures full Upper, Dentures full Lower Mouth Openin Fingerbreadth Neck Mobility: Normal Mallampati classification: II Thyromental Distance: 4-6 cm Mental/Cognitive Status: Alert/Oriented X3, Normal for patient Plan Anesthesia Type: MAC Consent for Procedure(s) Verified and Reviewed: Yes Code Status: Attempt Resuscitation ASA classification: 2-Mild systemic disease Is this case an emergency?: No
[2022-10-19] MEDS ORDERED: MIDAZOLAM 2 MG/2 ML VIAL ONE ×2 (07:51→08:13)
[2022-10-19] MEDS ORDERED: fentaNYL 100 MCG/2 ML VIAL ONE (07:52)
[2022-10-19] MEDS ORDERED: BRIMONIDINE 0.2% OPHTH DROPS 5 ML OPTH ONE (08:16)
[2022-10-19] MEDS ORDERED: TIMOLOL 0.5% OPHTH DROPS OPTH ONE (08:17)
[2022-10-19] MEDS ORDERED: BSS/LIDOCAINE/EPINEPHRINE 1 ML SYRINGE IO ONE (08:17)
[2022-10-19] MEDS ORDERED: EPINEPHrine 1 MG/ML AMP IR ONE (08:17)
[2022-10-19] MEDS ORDERED: VANCOMYCIN OPHTH (TOPICAL) 10 MG/ML SYRINGE TOP ONE (08:18)
[2022-10-19] MEDS ORDERED: PROPARACAINE 0.5% OPHTH DROPS 15 ML EACHEYE ONE (08:18)
[2022-10-19] MEDS ORDERED: TRIAMCIN/MOXIFLOX OPHTHALMIC 0.6 ML VIAL IO ONE ×2 (08:18→12:59)
[2022-10-19] MEDS ORDERED: LACTATED RINGERS 1,000 ML IV ONE (08:26)
--- NOTE | 2022-10-19 08:35 | OPERATIVE REPORT ---
Operative Report - Other Other Information/Narrative: Date of Surgery: 10/19/22 Preop Dx: Visually significant cataract right eye. Cataract surgery was performed in the left eye on . Postop Dx: Same Procedure: Phacoemulsification with posterior chamber intraocular lens implant right eye Surgeon: Dr. Yosvany Elena Anesthesia: Monitored anesthesia care Complications: None Operative Indications: This is a 67-year-old F with progressive vision loss in the right eye due to 2+ nuclear sclerotic cataract. Best corrected visual acuity was 20/40 with glare to 20/80 vision in the right eye. Indications for surgery were: - Overall decrease in vision - Difficulty seeing words on a computer screen - Difficulty reading - Difficulty with glare or bright lights in any situation The patient was consented at length concerning the risks and benefits of cataract surgery after which the patient expressed a desire to proceed with surgery. Operative Procedure: The patient was taken into OR#3 and placed under monitored anesthesia care. A surgical time-out was conducted confirming correct patient, correct procedure, and correct surgical site. The patient was given topical anesthesia and then prepped and draped in the usual sterile fashion. The eye was entered at the 6 and 3 oclock positions. Intracameral Shugarcaine was injected into the anterior chamber followed by a dispersive viscoelastic. A continuous-tear curvilinear capsulorhexis was performed. The nucleus was hydrodissected and phacoemulsified. The cortex was evacuated using automated infusion and aspiration. A cohesive viscoelastic was injected into the capsular bag and a 20.0 diopter intraocular lens was inserted into the bag. Infusion and aspiration were used to evacuate the viscoelastic materials from the eye. The wounds were hydrated and the eye inflated to physiologic pressure using balanced salt solution. Approximately 0.25ml of a mixture of triamcinolone and moxifloxacin was injected trans-sclerally into the vitreous in the inferotemporal quadrant using a 30 gauge cannula. An additional 0.55ml of a mixture of triamcinolone and moxifloxacin was injected subconjunctivally in the superior quadrant for infection and inflammation prophylaxis. Wound integrity was checked with Weck-Evelina sponges. The patient was taken from the operating room in good condition and given post-op instructions.
[2022-10-19 08:40] VITALS: BP 117/55
--- NOTE | 2022-10-19 09:02 | ANESTHESIA POST OP EVALUATION ---
Anesthesia Post Eval - Post Anesthesia Eval Vitals: Last Vital Signs Temp 36.3 C L 10/19/22 08:26 Pulse 74 10/19/22 08:39 Resp 21 10/19/22 08:39 BP 117/55 L 10/19/22 08:39 Pulse Ox 95 10/19/22 08:39 O2 Flow Rate CV Function Including HR & BP: Stable Pain Control: Satisfactory Nausea & Vomiting: Negative Mental Status: Baseline Respiratory Status: Airway Patent Hydration Status: Satisfactory Anesthesia Complications: None
[2022-10-19] MEDS ORDERED: VANCOMYCIN OPHTH (TOPICAL) 10 MG/ML SYRINGE ONE (12:59)
[2022-10-19] MEDS ORDERED: EPINEPHrine 1 MG/ML AMP ONE (12:59)
[2022-10-19] MEDS ORDERED: TIMOLOL 0.5% OPHTH DROPS ONE (12:59)
[2022-10-19] MEDS ORDERED: BSS/LIDOCAINE/EPINEPHRINE 1 ML VIAL ONE (12:59)
[2022-10-19] MEDS ORDERED: BRIMONIDINE 0.2% OPHTH DROPS 5 ML ONE (12:59)
== END 2022-10-19 06:38 | disposition home or self-care (01) ==
LOC: SDS 06:37
PROVIDERS: ATTEND Ophthalmology
DX: E11.36 Type 2 diabetes mellitus with diabetic cataract (principal); H25.11 Age-related nuclear cataract, right eye; E66.9 Obesity, unspecified; I10 Essential (primary) hypertension; F17.200 Nicotine dependence, unspecified, uncomplicated; Z68.38 Body mass index [BMI] 38.0-38.9, adult; Z79.84 Long term (current) use of oral hypoglycemic drugs; Z98.42 Cataract extraction status, left eye
CPT/HCPCS: 66984; A9270; J3490; J7120

== ENCOUNTER 2022-11-27 14:19 | Outpatient (CLI) | payer MEDICARE, MEDICAID ==
--- NOTE | 2022-11-28 08:03 | Ultrasound Report ---
PROCEDURE: Duplex Lwr Ext Arterial Bilat INDICATIONS: BILATERAL CLAUDICATION TECHNIQUE: Color and pulse Doppler interrogation was performed of both lower extremity arterial systems, with im age documentation. COMPARISON: None FINDINGS: Right lower extremity: Common femoral artery: 174 cm/sec, with triphasic flow. Deep femoral artery: 261 cm/sec, with triphasic flow. Proximal superficial femoral artery: 98 cm/sec, with triphasic flow. Mid superficial femoral artery: 89 cm/sec, with triphasic flow. Distal superficial femoral artery: 96 cm/sec, with triphasic flow. Popliteal artery: 47 cm/sec, with biphasic flow. Posterior tibial artery: 100 cm/sec, with biphasic flow. Anterior tibial artery/dorsalis pedis: 83/30 cm/sec, with biphasic/biphasic flow. Nicholas-scale imaging description: Calcified plaque throughout Left lower extremity: Common femoral artery: 105 cm/sec, with triphasic flow. Deep femoral artery: 99 cm/sec, with triphasic flow. Proximal superficial femoral artery: 99 cm/sec, with triphasic flow. Mid superficial femoral artery: 104 cm/sec, with triphasic flow. Distal superficial femoral artery: 98 cm/sec, with triphasic flow. Popliteal artery: 65 cm/sec, with biphasic flow. Posterior tibial artery: 81 cm/sec, with biphasic flow. Anterior tibial artery/dorsalis pedis: 89/25 cm/sec, with biphasic/biphasic flow. Nicholas-scale imaging description: Calcified plaque throughout IMPRESSION: 1. Calcified plaque throughout. 2. No significant stenosis by velocity/waveform criteria Reviewed by: Parth Day on 11/28/2022 8:02 AM PST Approved by: Parth Day on 11/28/2022 8:02 AM PST Station ID: [id number]
--- NOTE | 2022-11-28 12:55 | XRAY Report ---
PROCEDURE: Lumbar Spine Complete INDICATIONS: Bilateral TECHNIQUE: 5 views of the lumbar spine were acquired. COMPARISON: None. FINDINGS: There are five nonrib-bearing lumbar-type vertebral bodies of normal height and alignment. Decreased intervertebral disc space at every level in the lumbar spine and at the thoracolumbar junction with v arying degrees of associated facet hypertrophy and degenerative osteophytic ridging of the endplates. These factors produce neural foraminal height loss and stenosis at every level, worst at L4-L5 and L 5-S1. No suspicious bone lesion. Diffuse aortic atherosclerotic disease. Regional soft tissues are ot herwise within normal limits. IMPRESSION: Moderate to severe lower lumbar spine degenerative changes. Consider MRI in the setting of radicular symptoms. Diffuse aortic atherosclerosis. Reviewed by: Ken Michel MD on 11/28/2022 12:54 PM PST Approved by: Ken Michel MD on 11/28/2022 12:54 PM PST Station ID: [id number]
== END 2022-11-27 14:20 | disposition home or self-care (01) ==
LOC: DI 14:19
PROVIDERS: ATTEND Family Medicine
DX: I73.9 Peripheral vascular disease, unspecified (principal); M47.816 Spondylosis without myelopathy or radiculopathy, lumbar region; M47.817 Spondylosis without myelopathy or radiculopathy, lumbosacral region; I70.0 Atherosclerosis of aorta
CPT/HCPCS: 93925

== ENCOUNTER 2023-01-04 09:29 | Outpatient (CLI) | payer MEDICARE, MEDICAID ==
[2023-01-04 11:59] LABS: BASOPHILS % (AUTO) 0.5 %; EOSINOPHILS # (AUTO) 0.1 10^3/uL (0.0-0.7); EOSINOPHILS % (AUTO) 0.8 %; HCT - HEMATOCRIT 43.2 % (37.0-47.0); HGB - HEMOGLOBIN 14.9 g/dL (12.0-16.0); LYMPHOCYTES % (AUTO) 16.5 %; MEAN CORPUSCULAR HGB CONC 34.5 g/dL (32.0-36.0); MEAN CORPUSCULAR VOLUME 92.9 fL (81.0-99.0); MEAN PLATELET VOLUME 12.6 fL (7.9-10.8); MONOCYTES # (AUTO) 0.3 10^3/uL (0.0-1.0); MONOCYTES % (AUTO) 4.7 %; NEUTROPHILS # (AUTO) 4.8 10^3/uL (1.5-6.6); NEUTROPHILS % (AUTO) 77.3 %; PLT - PLATELET COUNT 93 10^3/uL (130-450); RED BLOOD COUNT 4.65 10^6/uL (4.20-5.40); RED CELL DISTRIBUTION WIDTH 12.1 % (12.0-15.0); WHITE BLOOD COUNT 6.2 x10^3/uL (4.8-10.8)
[2023-01-04 12:42] LABS: ALBUMIN 4.4 g/dL (3.2-5.5); ALBUMIN/GLOBULIN RATIO 1.2 (1.0-2.2); ALKALINE PHOSPHATASE 99 IU/L (42-121); ALT ALANINE AMINOTRANSFERASE 22 IU/L (10-60); AST ASPARTATE AMINOTRANSFERASE 29 IU/L (10-42); BILIRUBIN,TOTAL 1.1 mg/dL (0.2-1.0); BUN - BLOOD UREA NITROGEN 17 mg/dL (6-20); CALCIUM 9.7 mg/dL (8.5-10.3); CARBON DIOXIDE - CO2 29 mmol/L (21-32); CHLORIDE 101 mmol/L (101-111); CHOL/HDL RATIO 3.4 (<4.4); CHOLESTEROL 225 mg/dL; CREATININE 0.6 mg/dL (0.4-1.0); GFR - MDRD 100 (>89); GLUCOSE 140 mg/dL (70-100); HDL CHOLESTEROL 66 mg/dL; LDL CHOLESTEROL,CALCULATED 137 mg/dL; LDL/HDL RATIO 2.1 (<4.4); POTASSIUM 4.1 mmol/L (3.5-5.0); SODIUM 136 mmol/L (135-145); TOTAL PROTEIN 8.2 g/dL (6.7-8.2); TRIGLYCERIDES 109 mg/dL; VLDL CHOLESTEROL 22 mg/dL
[2023-01-04 12:46] LABS: THYROID STIMULATING HORMONE 1.68 uIU/mL (0.34-5.60)
[2023-01-04 12:59] LABS: ESTIMATED AVERAGE GLUCOSE 134 mg/dL (70-100); HEMOGLOBIN A1c% 6.3 % (4.27-6.07)
== END 2023-01-04 09:30 | disposition home or self-care (01) ==
LOC: LAB.N 09:29
PROVIDERS: ATTEND Family Medicine
DX: I10 Essential (primary) hypertension (principal); I73.9 Peripheral vascular disease, unspecified; G47.33 Obstructive sleep apnea (adult) (pediatric); K21.9 Gastro-esophageal reflux disease without esophagitis; E11.9 Type 2 diabetes mellitus without complications; Z96.652 Presence of left artificial knee joint; G57.03 Lesion of sciatic nerve, bilateral lower limbs
CPT/HCPCS: 36415; 80053; 80061; 83036; 83721; 84443; 85025

== ENCOUNTER 2023-07-02 12:50 | Outpatient (CLI) | payer MEDICARE, MEDICAID ==
[2023-07-02 18:15] LABS: HCT - HEMATOCRIT 44.3 % (37.0-47.0); HGB - HEMOGLOBIN 14.9 g/dL (12.0-16.0); MEAN CORPUSCULAR HEMOGLOBIN 31.8 pg (27.0-31.0); MEAN CORPUSCULAR HGB CONC 33.6 g/dL (32.0-36.0); MEAN CORPUSCULAR VOLUME 94.5 fL (81.0-99.0); RED BLOOD COUNT 4.69 10^6/uL (4.20-5.40); WHITE BLOOD COUNT 8.3 x10^3/uL (4.8-10.8)
[2023-07-02 18:16] LABS: BASOPHILS # (AUTO) 0.1 10^3/uL (0.0-0.1); BASOPHILS % (AUTO) 0.6 %; EOSINOPHILS # (AUTO) 0.2 10^3/uL (0.0-0.7); LYMPHOCYTES # (AUTO) 1.6 10^3/uL (1.5-3.5); LYMPHOCYTES % (AUTO) 19.6 %; MEAN PLATELET VOLUME 13.3 fL (7.9-10.8); MONOCYTES # (AUTO) 0.5 10^3/uL (0.0-1.0); MONOCYTES % (AUTO) 5.4 %; NEUTROPHILS % (AUTO) 72.2 %; PLT - PLATELET COUNT 110 10^3/uL (130-450); RED CELL DISTRIBUTION WIDTH 12.4 % (12.0-15.0)
[2023-07-02 18:31] LABS: ALBUMIN 4.2 g/dL (3.2-5.5); ALBUMIN/GLOBULIN RATIO 1.2 (1.0-2.2); BILIRUBIN,TOTAL 0.8 mg/dL (0.2-1.0); CALCIUM 10.2 mg/dL (8.5-10.3); CREATININE 0.7 mg/dL (0.6-1.3); POTASSIUM 4.2 mmol/L (3.5-4.5); TOTAL PROTEIN 7.7 g/dL (6.4-8.9)
[2023-07-02 18:41] LABS: THYROID STIMULATING HORMONE 1.84 uIU/mL (0.34-5.60)
== END 2023-07-02 12:51 | disposition home or self-care (01) ==
LOC: LAB.N 12:50
PROVIDERS: ATTEND Family Medicine
DX: I10 Essential (primary) hypertension (principal); D69.6 Thrombocytopenia, unspecified; K21.9 Gastro-esophageal reflux disease without esophagitis; E11.9 Type 2 diabetes mellitus without complications
CPT/HCPCS: 36415; 80053; 83036; 84443; 85025

== ENCOUNTER 2023-09-20 10:55 | Outpatient (CLI) | payer MEDICARE, MEDICAID ==
[2023-09-20 11:43] LABS: HCT - HEMATOCRIT 44.8 % (37.0-47.0); HGB - HEMOGLOBIN 15.5 g/dL (12.0-16.0); MEAN CORPUSCULAR HEMOGLOBIN 31.9 pg (27.0-31.0); MEAN CORPUSCULAR HGB CONC 34.6 g/dL (32.0-36.0); MEAN CORPUSCULAR VOLUME 92.2 fL (81.0-99.0); MEAN PLATELET VOLUME 12.9 fL (7.9-10.8); RED BLOOD COUNT 4.86 10^6/uL (4.20-5.40); WHITE BLOOD COUNT 9.9 x10^3/uL (4.8-10.8)
[2023-09-20 12:07] LABS: CALCIUM 10.1 mg/dL (8.5-10.3); CREATININE 0.6 mg/dL (0.6-1.3); CRP - C-REACTIVE PROTEIN 0.6 mg/dL (<0.5); POTASSIUM 3.9 mmol/L (3.5-4.5)
[2023-09-20 14:24] LABS: ESTIMATED AVERAGE GLUCOSE 160 mg/dL (70-100); HEMOGLOBIN A1c% 7.2 % (4.27-6.07)
[2023-09-20 14:26] LABS: RHEUMATOID FACTOR NEGATIVE (Negative)
--- NOTE | 2023-09-20 15:20 | XRAY Report ---
PROCEDURE: Cervical Spine Complete INDICATIONS: CERVICAL RADICULOPATHY TECHNIQUE: 4 views of the cervical spine acquired. COMPARISON: None. FINDINGS: Bones: No fractures or dislocations to the vertebra level. Degenerative disc disease, moderate at C5-C5, C5-C6 and C6-C7, mild at C3-C4. Bilateral facet arthropathy, most pronounced and moderate at C 5-C5 and C5-C6 on the right, and C6-C7 bilaterally. Oblique images demonstrate [id number] for aminal stenoses at C5-C6 and C6-C7 on the right, and C6-C7 on the left. Soft tissues: No prevertebral soft tissue swelling. IMPRESSION: 1.. Moderate degenerative disc and facet disease in cervical spine. 2. Multilevel foraminal stenosis as described. Reviewed by: Sukhwinder Dunlap MD on 09/20/2023 3:19 PM PST Approved by: Sukhwinder Dunlap MD on 09/20/2023 3:19 PM PST Station ID: [id number]
[2023-09-25 19:08] LABS: ANTINUCLEAR ANTIBODIES IFA Negative (.)
== END 2023-09-20 10:56 | disposition home or self-care (01) ==
LOC: DI 10:55
PROVIDERS: ATTEND Family Medicine
DX: M35.3 Polymyalgia rheumatica (principal); M47.22 Other spondylosis with radiculopathy, cervical region; M50.122 Cervical disc disorder at C5-C6 level with radiculopathy; M48.02 Spinal stenosis, cervical region; E11.9 Type 2 diabetes mellitus without complications
CPT/HCPCS: 36415; 80048; 83036; 85027; 85651; 86038; 86140; 86430

== ENCOUNTER 2023-11-10 10:18 | Emergency (ER) | payer MEDICARE, MEDICAID ==
[2023-11-10 11:21] LABS: BASOPHILS % (AUTO) 0.6 %; EOSINOPHILS % (AUTO) 0.5 %; HCT - HEMATOCRIT 41.5 % (37.0-47.0); HGB - HEMOGLOBIN 14.1 g/dL (12.0-16.0); LYMPHOCYTES # (AUTO) 0.9 10^3/uL (1.5-3.5); LYMPHOCYTES % (AUTO) 13.1 %; MEAN CORPUSCULAR HEMOGLOBIN 31.8 pg (27.0-31.0); MEAN CORPUSCULAR VOLUME 93.5 fL (81.0-99.0); MEAN PLATELET VOLUME 11.9 fL (7.9-10.8); MONOCYTES # (AUTO) 0.3 10^3/uL (0.0-1.0); MONOCYTES % (AUTO) 4.8 %; NEUTROPHILS # (AUTO) 5.2 10^3/uL (1.5-6.6); NEUTROPHILS % (AUTO) 80.7 %; PLT - PLATELET COUNT 105 10^3/uL (130-450); RED BLOOD COUNT 4.44 10^6/uL (4.20-5.40); WHITE BLOOD COUNT 6.5 x10^3/uL (4.8-10.8)
[2023-11-10 11:34] LABS: ALBUMIN 4.1 g/dL (3.2-5.5); ALBUMIN/GLOBULIN RATIO 1.3 (1.0-2.2); BILIRUBIN,TOTAL 0.9 mg/dL (0.2-1.0); CALCIUM 9.6 mg/dL (8.5-10.3); CREATININE 0.6 mg/dL (0.6-1.3); POTASSIUM 3.8 mmol/L (3.5-4.5); TOTAL PROTEIN 7.3 g/dL (6.4-8.9)
[2023-11-10 12:17] LABS: BILIRUBIN,URINE NEGATIVE (NEGATIVE); GLUCOSE, URINE (UA) 100 mg/dL (NEGATIVE); KETONES,URINE (UA) TRACE mg/dL (NEGATIVE); LEUKOCYTE ESTERASE, URINE NEGATIVE (NEGATIVE); NITRITE,URINE NEGATIVE (NEGATIVE); OCCULT BLOOD,URINE NEGATIVE (NEGATIVE); PROTEIN,URINE NEGATIVE (NEGATIVE); UROBILINOGEN,URINE 1 (NORMAL) E.U./dL (NORMAL)
[2023-11-10 12:20] LABS: CLARITY,URINE CLEAR (CLEAR)
--- NOTE | 2023-11-10 12:23 | XRAY Report ---
PROCEDURE: Chest 1V INDICATIONS: soa TECHNIQUE: One view of the chest was acquired. COMPARISON: None. FINDINGS: Surgical changes and devices: None. Lungs and pleura: No dense consolidation. No pleural effusions. Low lung volumes. Mediastinum: Normal heart size Bones and chest wall: No suspicious bony lesions. Overlying soft tissues appear unremarkable. IMPRESSION: No acute radiographic abnormality on this single view study with low lung volumes. Reviewed by: Fletcher Barrientos MD on 11/10/2023 12:21 PM PST Approved by: Fletcher Barrientos MD on 11/10/2023 12:21 PM [facility] Station ID: [id number]
[2023-11-10 12:39] VITALS: O2SAT 100
[2023-11-10 12:54] LABS: CORONAVIRUS 229E-RESP PCR NOT DETECTED; CORONAVIRUS HKU1-RESP PCR NOT DETECTED; CORONAVIRUS NL63-RESP PCR NOT DETECTED; CORONAVIRUS OC43-RESP PCR NOT DETECTED; HUMAN METAPNEUMOVIRUS NOT DETECTED; RHINOVIRUS/ENTEROVIRUS NOT DETECTED; SARS-CoV-2 -RESP PCR PANEL NOT DETECTED
[2023-11-10 12:55] LABS: B. PARAPERTUSSIS- RESP PCR PAN NOT DETECTED; B. PERTUSSIS- RESP PCR PANEL NOT DETECTED; C. PNEUMONIAE- RESP PCR PANEL NOT DETECTED; INFLUENZA A- RESP PCR PANEL NOT DETECTED; INFLUENZA B - RESP PCR PANEL NOT DETECTED; M. PNEUMONIAE- RESP PCR PANEL NOT DETECTED; PARAINFLUENZA VIRUS 1 NOT DETECTED; PARAINFLUENZA VIRUS 2 NOT DETECTED; PARAINFLUENZA VIRUS 3 NOT DETECTED; PARAINFLUENZA VIRUS 4 NOT DETECTED; RSV- RESP PCR PANEL NOT DETECTED
[2023-11-10] MEDS ORDERED: CHERRY SYRUP 10 ML UDC PO ONE (13:41)
[2023-11-10] MEDS ORDERED: diphenhydrAMINE 25 MG CAPSULE PO STA (13:41)
[2023-11-10] MEDS ORDERED: DEXAMETHASONE 10 MG/ML VIAL PO STA (13:41)
--- NOTE | 2023-11-10 13:43 | ED Physician Documentation ---
History of Present Illness - Stated complaint Stated Complaint: VOMITING,SHAKING - Chief complaint Chief Complaint: General - History obtained from History obtained from: Patient - History of Present Illness Timing: How many days ago (18) - Additonal information Additional information: Sofia Mcginins is a 68-year-old female who reports that she had a influenza vaccination given on 23 October and developed sweating of her palms and feet following that and has had a decreased appetite and dizziness associated. She has never had the symptoms previously. She reports having had COVID previously and being fully vaccinated.She is in the process of being worked up for spinal stenosis in both her neck and lower back and she has an MRI scheduled for 15 November. She is most concerned about the sweating her palms and feet and her lack of appetite. She reports that she is drinking plenty of fluids. Review of Systems Constitutional: denies: Fever Ears: denies: Ear pain Nose: denies: Congestion Throat: denies: Sore throat Respiratory: denies: Dyspnea, Cough GI: reports: Constipation. denies: Abdominal Pain, Nausea, Vomiting, Diarrhea : denies: Dysuria, Frequency Skin: denies: Rash Musculoskeletal: denies: Neck pain, Back pain PD PAST MEDICAL HISTORY - Past Medical History Past Medical History: Yes Cardiovascular: Hypertension, High cholesterol Respiratory: None, Sleep apnea Neuro: None Endocrine/Autoimmune: None GI: GERD, Hiatal hernia, Hepatitis [employer]: Breast cancer : None HEENT: Chronic vision loss Psych: Depression, Anxiety, Bipolar disorder, Panic attacks, Claustrophobia Musculoskeletal: Osteoarthritis, Fibromyalgia, Chronic back pain Derm: None - Past Surgical History Past Surgical History: Yes General: Colonoscopy Ortho: Knee replacement, Carpal Tunnel surgery /[employer]: Mastectomy - Present Medications Home Medications: Ambulatory Orders Medication Instructions Recorded Confirmed Ascorbic Acid [Vitamin C] 500 mg PO DAILY 09/13/22 11/10/23 Meloxicam [Mobic] 15 mg PO DAILY 09/13/22 11/10/23 Omeprazole Magnesium 20 mg PO DAILY 09/13/22 11/10/23 Rosuvastatin Calcium [Crestor] 10 mg PO HS 09/13/22 11/10/23 lisinopriL [Lisinopril] 10 mg PO DAILY 09/13/22 11/10/23 - Allergies Allergies/Adverse Reactions: Allergies Allergy/AdvReac Type Severity Reaction Status Date / Time Penicillins Allergy Severe Edema Verified 11/10/23 10:24 silk tape AdvReac Unknown Uncoded 09/14/22 06:50 - Social History Does the pt smoke?: Yes Smoking Status: Current every day smoker Does the pt drink ETOH?: No Does the pt have substance abuse?: Yes Substance Use and Type: Marijuana - Immunizations Immunizations are current?: Yes PD ED PE NORMAL - Vitals Vital signs reviewed: Yes (hypertensive ) - General General: Alert and oriented X 3, No acute distress, Well developed/nourished - HEENT HEENT: Atraumatic, PERRL, EOMI - Neck Neck: Supple, no meningeal sign, No bony TTP - Cardiac Cardiac: RRR, No murmur - Respiratory Respiratory: No respiratory distress, Clear bilaterally - Abdomen Abdomen: Soft, Non tender - Back Back: No CVA TTP, No spinal TTP - Derm Derm: Normal color, Warm and dry, No rash - Extremities Extremities: No deformity, No edema - Neuro Neuro: Alert and oriented X 3, heddler 2-12 intact, No motor deficit, No sensory deficit, Normal speech Eye Opening: Spontaneous Motor: Obeys Commands Verbal: Oriented GCS Score: 15 - Psych Psych: Normal mood, Normal affect Results - Vitals Vitals: Vital Signs - 24 hr 11/10/23 11/10/23 10:25 12:31 Temperature 36.1 C L Heart Rate 95 75 Respiratory 18 11 L Rate Blood Pressure 177/81 H 143/82 H O2 Saturation 98 100 Oxygen O2 Source Room air - Labs Labs: Laboratory Tests 11/10/23 11/10/23 11/10/23 11:15 11:15 11:50 WBC 6.5 RBC 4.44 Hgb 14.1 Hct 41.5 MCV 93.5 MCH 31.8 H MCHC 34.0 RDW 13.0 Plt Count 105 L MPV 11.9 H Neut # (Auto) 5.2 Lymph # (Auto) 0.9 L [place] # (Auto) 0.3 Eos # (Auto) 0.0 Baso # (Auto) 0.0 Absolute Nucleated RBC 0.00 Nucleated RBC % 0.0 Sodium 135 Potassium 3.8 Chloride 104 Carbon Dioxide 25 Anion Gap 6.0 BUN 14 Creatinine 0.6 Estimated GFR (MDRD) 99 Glucose 205 H Calcium 9.6 Total Bilirubin 0.9 AST 27 ALT 20 Alkaline Phosphatase 121 Total Protein 7.3 Albumin 4.1 Globulin 3.2 Albumin/Globulin Ratio 1.3 Lipase 12 Urine Color Urine Clarity Urine pH Ur Specific [place] Urine Protein Urine Glucose (UA) Urine Ketones Urine Occult Blood Urine Nitrite Urine Bilirubin Urine Urobilinogen Ur Leukocyte Esterase Ur Microscopic Review Urine Culture Comments Nasal Adenovirus (PCR) NOT DETECTED Nasal B. parapertussis DNA (PCR) NOT DETECTED Nasal Coronavir 229E PCR NOT DETECTED Nasal Coronavir HKU1 PCR NOT DETECTED Nasal Coronavir NL63 PCR NOT DETECTED Nasal Coronavir OC43 PCR NOT DETECTED Nasal Enterovir/Rhinovir PCR NOT DETECTED Nasal Influenza B PCR NOT DETECTED Nasal Influenza A PCR NOT DETECTED Nasal Parainfluen 1 PCR NOT DETECTED Nasal Parainfluen 2 PCR NOT DETECTED Nasal Parainfluen 3 PCR NOT DETECTED Nasal Parainfluen 4 PCR NOT DETECTED Nasal RSV (PCR) NOT DETECTED Nasal B.pertussis DNA PCR NOT DETECTED Nasal C.pneumoniae (PCR) NOT DETECTED Dmitri Human Metapneumo PCR NOT DETECTED Nasal M.pneumoniae (PCR) NOT DETECTED Nasal SARS-CoV-2 (PCR) NOT DETECTED 11/10/23 12:05 WBC RBC Hgb Hct MCV MCH MCHC RDW Plt Count MPV Neut # (Auto) Lymph # (Auto) [place] # (Auto) Eos # (Auto) Baso # (Auto) Absolute Nucleated RBC Nucleated RBC % Sodium Potassium Chloride Carbon Dioxide Anion Gap BUN Creatinine Estimated GFR (MDRD) Glucose Calcium Total Bilirubin AST ALT Alkaline Phosphatase Total Protein Albumin Globulin Albumin/Globulin Ratio Lipase Urine Color DARK YELLOW Urine Clarity CLEAR Urine pH 6.0 Ur Specific [place] 1.025 Urine Protein NEGATIVE Urine Glucose (UA) 100 H Urine Ketones TRACE Urine Occult Blood NEGATIVE Urine Nitrite NEGATIVE Urine Bilirubin NEGATIVE Urine Urobilinogen 1 (NORMAL) Ur Leukocyte Esterase NEGATIVE Ur Microscopic Review NOT INDICATED Urine Culture Comments NOT INDICATED Nasal Adenovirus (PCR) Nasal B. parapertussis DNA (PCR) Nasal Coronavir 229E PCR Nasal Coronavir HKU1 PCR Nasal Coronavir NL63 PCR Nasal Coronavir OC43 PCR Nasal Enterovir/Rhinovir PCR Nasal Influenza B PCR Nasal Influenza A PCR Nasal Parainfluen 1 PCR Nasal Parainfluen 2 PCR Nasal Parainfluen 3 PCR Nasal Parainfluen 4 PCR Nasal RSV (PCR) Nasal B.pertussis DNA PCR Nasal C.pneumoniae (PCR) Dmitri Human Metapneumo PCR Nasal M.pneumoniae (PCR) Nasal SARS-CoV-2 (PCR) Procedures - IVC sono (time) 1420 Bedside IVC sono: IVC measures (cm) (1.12), Dehydration (est 1+ liter deficit) PD Medical Decision Making - ED course Complexity details: considered differential, d/w patient ED course: 68-year-old female with chief complaint of sweating to the palms and soles of her feet, fatigue, dizziness and loss of appetite after a flu shot given 18 days ago. I have no specific explanation for the patient's symptoms and we did do a general workup to include blood work.This blood work demonstrated normal blood counts, normal electrolytes, normal kidney and liver function. An elevated blood glucose with glucose in the urine. a normal urinalysis and a negative viral PCR. I did evaluate the patient at discharge for dehydration and found that she was a liter + dehydrated and I discussed with her these findings and indicated that it was due to her diabetes. She tells me she has been taken off of her mediations when she gained control but she has been eating donuts recently. Departure - Departure Disposition: 01 Home, Self Care Clinical Impression: Dehydration, Focal hyperhidrosis Diabetes Qualifiers: Diabetes mellitus type: type 2 Diabetes mellitus mcfp insulin use: without mcfp use Diabetes mellitus complication status: with other specified complication Qualified Code(s): E11.69 - Type 2 diabetes mellitus with other specified complication Condition: Stable Instructions: ED Dehydration Follow-Up: Fede Smallwood MD [Primary Care Provider] - Comments: Sofia, today we evaluated your blood counts and electrolytes and found no significant abnormalities. We did find that your blood glucose was elevated and there is glucose in your urine. This correlates with your level of dehydration. This is likely your reason for feeling dizzy or lightheaded. For hyperhidrosis or the sweating of your palms and soles may be related to your vaccine reaction. I do not have a specific remedy for this. The expectation would be for this to resolve by itself. Today we did give you a dose of dexamethasone and unfortunately this will make your blood sugar go up even higher (temporarily) . Hydrate additionally and avoid sugar, candy and foods high in sugar. Forms: PCP List
[2023-11-10 14:51] VITALS: BP 147/77
== END 2023-11-10 14:50 | disposition home or self-care (01) ==
LOC: ED 10:18
DX: L74.512 Primary focal hyperhidrosis, palms (principal); L74.513 Primary focal hyperhidrosis, soles; E86.0 Dehydration; E11.69 Type 2 diabetes mellitus with other specified complication; F17.200 Nicotine dependence, unspecified, uncomplicated
CPT/HCPCS: 36415; 71045; 80053; 81003; 83690; 85025; 87633; 99284; A9270; 81001; 87086

== ENCOUNTER 2023-11-15 12:44 | Outpatient (CLI) | payer MEDICARE, MEDICAID ==
--- NOTE | 2023-11-15 19:44 | MRI Report ---
PROCEDURE: LUMBAR SPINE WO INDICATIONS: LUMBAR SPINAL STENOSIS TECHNIQUE: Noncontrast sagittal T1 spin echo and T2 fast echo, sagittal STIR, axial T1 and T2 fast spin echo thr ough the lumbar spine. In cases with scoliosis, additional coronal T2 fast spin echo may be performe d. COMPARISON: Lumbar spine plain films dated 11/27/2022. FINDINGS: Image quality: Excellent. Alignment and Curvature: Trace retrolisthesis of L5 on S1. Bone Marrow: Marrow is of normal overall signal. No acute vertebral body compression fractures. Spinal Cord: Conus medullaris terminates at the L2 level. Visualized cord demonstrates normal signa l and size. Paraspinous Soft Tissues: No paravertebral masses. T12-L1: Chronic disc height loss. Disc bulge. No canal stenosis or foraminal stenosis. L1-L2: Chronic disc height loss. Disc bulge. Facet hypertrophy. No canal stenosis or foraminal adamaris nosis. L2-L3: Disc bulge. Facet hypertrophy. No canal stenosis or foraminal stenosis. L3-L4: Diffuse disc bulge with small superimposed left paracentral disc protrusion . Epidural lipom atosis. Moderate central canal stenosis. Probable mild impingement on the left L4 nerve root in the l eft lateral recess by small disc protrusion. Left foraminal disc bulge results in mild to moderate le ft foraminal narrowing. L4-L5: Disc bulge. Facet hypertrophy. Epidural lipomatosis. Mild canal stenosis. Mild to moderate l eft foraminal stenosis. L5-S1: Severe chronic disc height loss. Retrolisthesis of L5 on S1. Disc bulge. Facet hypertrophy. No significant canal stenosis. Moderate to severe bilateral foraminal narrowing with mild impingement on the exiting bilateral L5 nerve root. IMPRESSION: 1. There is underlying multilevel facet arthropathy. 2. Epidural lipomatosis contributes to canal stenosis at L3-L4 and L4-L5. Canal stenosis is moderate at L3-L4 and mild at L4-L5. 3. Multilevel foraminal narrowing as described above. Findings include moderate to severe bilateral f oraminal narrowing at L5-S1. Reviewed by: Dez Lopez MD on 11/15/2023 7:42 PM PST Approved by: Dez Lopez MD on 11/15/2023 7:42 PM PST Station ID: [id number]
== END 2023-11-15 12:45 | disposition home or self-care (01) ==
LOC: DI 12:44
PROVIDERS: ATTEND Family Medicine
DX: M51.26 Other intervertebral disc displacement, lumbar region (principal); M51.36 Other intervertebral disc degeneration, lumbar region; M48.061 Spinal stenosis, lumbar region without neurogenic claudication; M47.816 Spondylosis without myelopathy or radiculopathy, lumbar region; M47.27 Other spondylosis with radiculopathy, lumbosacral region; M48.07 Spinal stenosis, lumbosacral region; M51.17 Intervertebral disc disorders with radiculopathy, lumbosacral region

== ENCOUNTER 2023-12-03 10:36 | Outpatient (CLI) | payer MEDICARE, MEDICAID ==
[2023-12-03 18:14] LABS: HCT - HEMATOCRIT 42.9 % (37.0-47.0); HGB - HEMOGLOBIN 14.9 g/dL (12.0-16.0); MEAN CORPUSCULAR HEMOGLOBIN 32.7 pg (27.0-31.0); MEAN CORPUSCULAR HGB CONC 34.7 g/dL (32.0-36.0); MEAN CORPUSCULAR VOLUME 94.1 fL (81.0-99.0); MEAN PLATELET VOLUME 12.9 fL (7.9-10.8); RED BLOOD COUNT 4.56 10^6/uL (4.20-5.40); RED CELL DISTRIBUTION WIDTH 12.8 % (12.0-15.0); WHITE BLOOD COUNT 7.7 x10^3/uL (4.8-10.8)
[2023-12-03 18:31] LABS: CALCIUM 9.9 mg/dL (8.5-10.3); CREATININE 0.5 mg/dL (0.6-1.3); POTASSIUM 4.2 mmol/L (3.5-4.5)
[2023-12-03 19:20] LABS: RHEUMATOID FACTOR POSITIVE (Negative)
[2023-12-03 20:59] LABS: ESTIMATED AVERAGE GLUCOSE 169 mg/dL (70-100); HEMOGLOBIN A1c% 7.5 % (4.27-6.07)
[2023-12-04 17:12] LABS: ANTINUCLEAR ANTIBODIES IFA Negative (.)
== END 2023-12-03 10:37 | disposition home or self-care (01) ==
LOC: LAB.N 10:36
PROVIDERS: ATTEND Family Medicine
DX: E11.9 Type 2 diabetes mellitus without complications (principal); M54.12 Radiculopathy, cervical region; M35.3 Polymyalgia rheumatica
CPT/HCPCS: 36415; 80048; 83036; 85027; 85651; 86038; 86140; 86430

== ENCOUNTER 2023-12-07 09:01 | Outpatient (CLI) | payer MEDICARE, MEDICAID | END 2023-12-07 09:02 | disposition EMS.NT | LOC: EMS 09:01 | DX: R11.2 Nausea with vomiting, unspecified (principal) ==

== ENCOUNTER 2024-02-06 08:57 | Outpatient (CLI) | payer MEDICARE, MEDICAID ==
[2024-02-06 12:17] LABS: ESTIMATED AVERAGE GLUCOSE 143 mg/dL (70-100); HEMOGLOBIN A1c% 6.6 % (4.27-6.07)
[2024-02-06 12:39] LABS: CALCIUM 10.5 mg/dL (8.5-10.3); CREATININE 0.6 mg/dL (0.6-1.3); POTASSIUM 4.5 mmol/L (3.5-4.5)
== END 2024-02-06 08:58 | disposition home or self-care (01) ==
LOC: LAB.N 08:57
PROVIDERS: ATTEND Family Medicine
DX: E11.9 Type 2 diabetes mellitus without complications (principal)
CPT/HCPCS: 36415; 80048; 83036